=== PATIENT | female | born 1990 | race African-American/Black ===

== ENCOUNTER 2016-08-20 20:36 | Emergency (ER) | payer BC ==
[2016-08-20] MEDS ORDERED: ALLEGRA PO (20:50)
[2016-08-20] MEDS ORDERED: NEXIUM PO (20:51)
[2016-08-20] MEDS ORDERED: PHENTERMINE H37.5 M1 PO (20:51)
== END 2016-08-20 22:15 | disposition home or self-care (01) ==
LOC: SED 20:36
DX: S61.211A Laceration without foreign body of left index finger without damage to nail, initial encounter (principal); J45.909 Unspecified asthma, uncomplicated; K21.9 Gastro-esophageal reflux disease without esophagitis; Z23 Encounter for immunization; W26.0XXA Contact with knife, initial encounter; Y92.009 Unspecified place in unspecified non-institutional (private) residence as the place of occurrence of the external cause
CPT/HCPCS: 12001; 90471; 90715; 99283